=== PATIENT | female | born 1965 | race Caucasian/White ===

== ENCOUNTER 2017-11-24 04:37 | Emergency (ER) | payer BC ==
[~2017-11-24] VITALS: Ht 170.2 cm; Wt 102.1 kg
--- NOTE | 2017-11-24 04:43 | NUR ---
PT AMBULATORY TO ER BED 2. PT BIB RA C/O HEADACHE X 2 DAYS. HX OF MIGRAINES. PT VSS/RESP EVEN UNLABORED/NAD NOTED/SKIN WARM AND DRY/DENIES N-V-D/AFEBRILE/AOX4. AWAITING MD GRESHAM.
[2017-11-24] MEDS ORDERED: METOCLOPRAMIDE HCL 10 MG/2 ML VIAL ONE (04:50)
[2017-11-24] MEDS ORDERED: SUMATRIPTAN SUCCINATE 6 MG/0.5 ML VIAL SQ ONE ×2 (05:00→05:06)
[2017-11-24] MEDS ORDERED: IV NS 0.9% 1,000 ML BAG IV ONE (05:00)
[2017-11-24] MEDS ORDERED: METOCLOPRAMIDE HCL 10 MG/2 ML VIAL IV ONE (05:00)
--- NOTE | 2017-11-24 05:00 | NUR ---
20G IV TO L AC X 1 ATTEMPT USING ASEPTIC TECH, IV FLUSHES EASILY WITH NS, NO S/S INFILTRATION.
[2017-11-24] MEDS ORDERED: KETOROLAC TROMETHAMINE INJ 30 MG/ML VIAL ONE (06:16)
--- NOTE | 2017-11-24 06:21 | NUR ---
CHANGED TORADOL 30MG IM TO TORADOL 30 MG IV. TORADOL 30 MG IV GIVEN THRU 20G L AC PER VO.
[2017-11-24] MEDS ORDERED: KETOROLAC TROMETHAMINE INJ 60 MG/2 ML VIAL IM ONE (06:30)
--- NOTE | 2017-11-24 06:46 | NUR ---
IV removed. Catheter intact and site benign. Pressure and 4x4 applied to site. No bleeding noted. Patient discharged to home in stable condition. Written and verbal after care instructions given. Patient verbalizes understanding of instruction. Patient ambulatory with a steady gait.
[2017-11-24 06:47] VITALS: BP 160/70
== END 2017-11-24 06:47 | disposition home or self-care (01) ==
LOC: ER 04:40
DX: G43.909 Migraine, unspecified, not intractable, without status migrainosus (principal); I10 Essential (primary) hypertension
CPT/HCPCS: 96361; 96372; 96374; 96375; 99284; A4606; J1885; J2765; J3030; J7030; Z7610